=== PATIENT | male | born 1960 | race African-American/Black ===

== ENCOUNTER 2017-01-21 19:00 | Emergency (ER) | payer SELFPAY ==
[2013-06-21 15:00] VITALS: BMI 22.8
[~2017-01-21 19:00] MED LIST: ADVIL200 MG PO; APRESOLINE50 MG PO; ASPIRIN325 MG PO; PLAVIX75 MG PO; PRAVACHOL20 MG PO; TYLENOL325 MG PO; ZESTRIL40 MG PO; [UNRECOGNIZED DRUG - REMARK]; [UNRECOGNIZED DRUG - REMARK]; [UNRECOGNIZED DRUG - REMARK]
[2017-01-21 19:36] LABS: BASOPHILS 0.6 % (0.0-2.0); EOSINOPHILS 15.7 % (0-7); HEMATOCRIT 37.2 % (42.0-54.0); HEMOGLOBIN 12.6 g/dL (13.5-17.5); IMMATURE GRANULOCYTES 0.2 % (0-5); LYMPHOCYTES 43.7 % (15-50); MCH 30.1 pg (26.0-34.0); MCHC 33.9 g/dL (31.0-37.0); MCV 88.8 fL (80.0-100.0); MEAN PLATELET VOLUME 9.9 fL (7.4-10.4); MONOCYTES 6.7 % (2-11); NEUTROPHILS 33.1 % (40-80); PLATELET COUNT 135 10x3/uL (130-400); RBC 4.19 10x6/uL (4.20-6.10); RDW 13.4 % (11.5-14.5)
[2017-01-21 19:48] LABS: APPEARANCE CLEAR (CLEAR); BILIRUBIN NEGATIVE (NEGATIVE); COLOR COLORLESS (YELLOW); GLUCOSE NEGATIVE (NEGATIVE); KETONE NEGATIVE (NEGATIVE); LEUKOCYTE ESTERASE NEGATIVE (NEGATIVE); NITRITE NEGATIVE (NEGATIVE); PROTEIN NEGATIVE (NEGATIVE); UROBILINOGEN NORMAL (NORMAL)
[2017-01-21 19:49] LABS: UDS - AMPHET NEGATIVE QUAL (NEGATIVE); UDS - BARB NEGATIVE QUAL (NEGATIVE); UDS - BENZO NEGATIVE QUAL (NEGATIVE); UDS - COCAINE NEGATIVE QUAL (NEGATIVE); UDS - METH NEGATIVE QUAL (NEGATIVE); UDS - OPIATE NEGATIVE QUAL (NEGATIVE); UDS - PCP NEGATIVE QUAL (NEGATIVE); UDS - THC NEGATIVE QUAL (NEGATIVE)
[2017-01-21 19:58] LABS: ALKALINE PHOSPHATASE 50 U/L (46-116); ALT (SGPT) 55 U/L (10-68); BILIRUBIN - TOTAL 0.35 mg/dL (0.2-1.3); CALC OSMOLALITY 269 mosm/kg (275-300); CALCIUM 8.9 mg/dL (8.5-10.1); CARBON DIOXIDE 22.2 mmol/L (21.0-32.0); CHLORIDE - SERUM 101 mmol/L (98-107); GLUCOSE 81 mg/dL (74-106); POTASSIUM - SERUM 3.5 mmol/L (3.5-5.1); PROTEIN - SERUM 8.5 g/dL (6.4-8.2); SODIUM 136 mmol/L (136-145); UREA NITROGEN 11 mg/dL (7-18); eGFR NON AFRICAN AMERICAN 81 mL/min (90-120)
== END 2017-01-22 11:13 | disposition home or self-care (01) ==
LOC: D.ER 19:00
PROVIDERS: Emergency Medicine
DX: F10.129 Alcohol abuse with intoxication, unspecified (principal); I10 Essential (primary) hypertension

== ENCOUNTER 2017-08-18 09:55 | Emergency (ER) | payer MEDICAID ==
[2013-06-21 15:00] VITALS: BMI 22.8
== END 2017-08-18 13:41 | disposition home or self-care (01) ==
LOC: D.ER 09:55
DX: I10 Essential (primary) hypertension (principal)

== ENCOUNTER 2017-10-16 19:06 | Emergency (ER) | payer MEDICAID ==
[2013-06-21 15:00] VITALS: BMI 22.8
[2017-10-16 19:36] LABS: BASOPHILS 0.6 % (0-2); HEMATOCRIT 38.8 % (42.0-54.0); HEMOGLOBIN 13.3 g/dL (13.5-17.5); LYMPHOCYTES 38.3 % (15-50); MCHC 34.3 g/dL (31.0-37.0); MCV 93.3 fL (80.0-100.0); MONOCYTES 9.3 % (2-11); NEUTROPHILS 38.8 % (40-80); RBC 4.16 10x6/uL (4.20-6.10); RDW 12.3 % (11.5-14.5); WBC 5.4 10x3/uL (4.8-10.8)
[2017-10-16 19:37] LABS: PLATELET COUNT 186 10x3/uL (130-400)
[2017-10-16 19:45] LABS: UDS - AMPHET NEGATIVE QUAL (NEGATIVE); UDS - BARB NEGATIVE QUAL (NEGATIVE); UDS - BENZO NEGATIVE QUAL (NEGATIVE); UDS - COCAINE NEGATIVE QUAL (NEGATIVE); UDS - OPIATE NEGATIVE QUAL (NEGATIVE); UDS - PCP NEGATIVE QUAL (NEGATIVE); UDS - THC NEGATIVE QUAL (NEGATIVE)
[2017-10-16 19:52] LABS: ALBUMIN 3.8 g/dL (3.4-5.0); BILIRUBIN - TOTAL 0.22 mg/dL (0.2-1.3); CALCIUM 8.7 mg/dL (8.5-10.1); CARBON DIOXIDE 23.4 mmol/L (21.0-32.0); CREATININE - SERUM 1.1 mg/dL (0.6-1.3); MAGNESIUM - SERUM 2.1 mg/dL (1.8-2.4); POTASSIUM - SERUM 3.4 mmol/L (3.5-5.1); PROTEIN - SERUM 8.9 g/dL (6.4-8.2)
== END 2017-10-16 20:30 | disposition home or self-care (01) ==
LOC: D.ER 19:06
PROVIDERS: Emergency Medicine
DX: F10.129 Alcohol abuse with intoxication, unspecified (principal)

== ENCOUNTER 2017-12-17 09:46 | Emergency (ER) | payer MEDICAID ==
[2013-06-21 15:00] VITALS: BMI 22.8
== END 2017-12-17 11:28 | disposition home or self-care (01) ==
LOC: D.ER 09:46
DX: I10 Essential (primary) hypertension (principal); F17.200 Nicotine dependence, unspecified, uncomplicated

== ENCOUNTER 2018-03-10 08:49 | Emergency (ER) | payer MEDICAID ==
[2013-06-21 15:00] VITALS: BMI 22.8
== END 2018-03-10 09:35 | disposition home or self-care (01) ==
LOC: D.ER 08:49
DX: I10 Essential (primary) hypertension (principal); F17.200 Nicotine dependence, unspecified, uncomplicated

== ENCOUNTER 2018-05-25 08:59 | Emergency (ER) | payer MEDICAID ==
[~2018-05-25] VITALS: Ht 185.4 cm; Wt 81.8 kg
[2018-05-25 09:20] VITALS: Ht 185.4 cm; Wt 81.8 kg
[2018-05-25 10:00] VITALS: BP 150/105
== END 2018-05-25 10:00 | disposition home or self-care (01) ==
LOC: D.ER 08:59
DX: I10 Essential (primary) hypertension (principal)

== ENCOUNTER 2018-07-13 10:46 | Emergency (ER) | payer MEDICAID ==
[~2018-07-13] VITALS: Ht 185.4 cm; Wt 81.8 kg
[2018-07-13 10:51] VITALS: Ht 185.4 cm; Wt 81.8 kg
[2018-07-13] MEDS ORDERED: TORADOL10 MG PO (13:44)
[2018-07-13 13:52] VITALS: BP 164/96
== END 2018-07-13 13:52 | disposition home or self-care (01) ==
LOC: D.ER 10:46
DX: S62.306A Unspecified fracture of fifth metacarpal bone, right hand, initial encounter for closed fracture (principal); W10.9XXA Fall (on) (from) unspecified stairs and steps, initial encounter; Y93.89 Activity, other specified; Y92.019 Unspecified place in single-family (private) house as the place of occurrence of the external cause; Z86.73 Personal history of transient ischemic attack (TIA), and cerebral infarction without residual deficits

== ENCOUNTER 2018-09-08 07:47 | Emergency (ER) | payer MEDICAID ==
[~2018-09-08] VITALS: Ht 185.4 cm; Wt 80.9 kg
[~2018-09-08 07:47] MED LIST changes: +TORADOL10 MG PO
[2018-09-08 08:06] VITALS: Ht 185.4 cm; Wt 80.9 kg
[2018-09-08] MEDS ORDERED: NORVASC5 MG PO (08:08)
[2018-09-08] MEDS ORDERED: NORVASC10 MG PO (08:45)
[2018-09-08 09:02] VITALS: BP 117/85
== END 2018-09-08 08:56 | disposition home or self-care (01) ==
LOC: D.ER 07:47
DX: I10 Essential (primary) hypertension (principal); F17.200 Nicotine dependence, unspecified, uncomplicated

== ENCOUNTER 2019-07-05 10:51 | Emergency (ER) | payer MEDICAID ==
[~2019-07-05] VITALS: Ht 185.4 cm; Wt 71.9 kg
[~2019-07-05 10:51] MED LIST changes: +NORVASC10 MG PO; +NORVASC5 MG PO
[2019-07-05 11:08] VITALS: Ht 185.4 cm; Wt 71.9 kg
[2019-07-05] MEDS ORDERED: CATAPRES0.1 MG PO ×2 (11:10→12:06)
[2019-07-05] MEDS ORDERED: NORVASC10 MG PO (12:06)
[2019-07-05 12:25] VITALS: BP 134/102
== END 2019-07-05 12:25 | disposition home or self-care (01) ==
LOC: D.ER 10:51
DX: I10 Essential (primary) hypertension (principal)

== ENCOUNTER 2019-09-13 10:44 | Inpatient (IN) | payer MEDICAID ==
[~2019-09-13] VITALS: Ht 185.4 cm; Wt 77.1 kg
[~2019-09-13 10:44] MED LIST changes: +CATAPRES0.1 MG PO
[2019-09-13 12:51] LABS: BASOPHILS 0.3 % (0-2); HEMATOCRIT 38.6 % (42.0-54.0); IMMATURE GRANULOCYTES 0.1 % (0-5); LYMPHOCYTES 13.5 % (15-50); MCH 31.2 pg (26.0-34.0); MCHC 33.7 g/dL (31.0-37.0); MCV 92.6 fL (80.0-100.0); MONOCYTES 12.6 % (2-11); NEUTROPHILS 67.5 % (40-80); RBC 4.17 10x6/uL (4.20-6.10); RDW 13.2 % (11.5-14.5); WBC 7.7 10x3/uL (4.8-10.8)
[2019-09-13 12:53] LABS: PLATELET COUNT 230 10x3/uL (130-400)
[2019-09-13 12:58] LABS: ANION GAP 12.8 mmol/L (8-16); CALCIUM 9.1 mg/dL (8.5-10.1); CARBON DIOXIDE 27.9 mmol/L (21.0-32.0); CREATININE - SERUM 1.1 mg/dL (0.6-1.3); POTASSIUM - SERUM 3.7 mmol/L (3.5-5.1)
[2019-09-13 13:04] LABS: ALBUMIN 3.5 g/dL (3.4-5.0); BILIRUBIN - TOTAL 1.01 mg/dL (0.2-1.3); PROTEIN - SERUM 9.6 g/dL (6.4-8.2)
[2019-09-13 13:44] VITALS: BP 177/111
[2019-09-13 15:30] VITALS: BP 183/110; BMI 22.4
--- NOTE | 2019-09-13 15:43 | NUR ---
PATIENT ADMITTED FROM ER WITH KEKE-RECTAL ABCESS, PATIENT IS ALERT AND ORIENTED, DENIES PAIN AT THIS TIME. PATIENT ORIENTED TO ROOM, SR UP X2, CL IN REACH
--- NOTE | 2019-09-13 15:50 | MORECARE ---
CASE MANAGEMENT DISCHARGE SUMMARY PATIENT: JENN JARVIS UNIT: [id number] ADM DATE: 09/13/19 AGE: 59 : 58 SEX: M ROOM/BED: D.2227 AUTHOR: LEONEL,DOC PHYSICIAN: REFERRING PHYSICIAN: KRISTINE HART MD DATE OF SERVICE: 09/13/19 Discharge Plan Patient Name: JENN JARVIS Facility: [facility]:[place] : 1960 Planned Disposition: Home Anticipated Discharge Date: 09/15/19 Discharge Date: Expected LOS: 2 Initial Reviewer: [email or web address] Initial Review Date: 09/13/2019 Generated: 09/13/19 4:49 pm DCP- Discharge Planning Updated by [email or web address]: Monique Romano on 09/13/19 2:[address] DC PLAN: Return home with roommates. ANTICIPATED DC NEEDS: Denied known dc needs at time of assessment. CM met with patient to complete initial dc planning assessment. CM educated patient on the CM role and verbal consent given by patient to complete assessment. CM verified patient's address, phone number, and emergency contact phone numbers. Patient lives at home with roommates one being his sister. At discharge patient plans to return home and feels this is a safe discharge. CM discussed availability of home health, rehab services, and medical equipment. Patient denied known discharge needs at this time. Transportation provider at discharge will be the bus or his sister . CM will continue to follow and will assist as needed with dc plans/needs. Monique Romano RN, [facility] DCPIA - Discharge Planning Initial Assessment Updated by [email or web address]: Monique Romano on 09/13/19 3:39 pm * Is the patient Alert and Oriented? Yes * How many steps to enter\exit or inside your home? * PCP No PCP * Pharmacy [facility] [address] * Preadmission Environment Home with Family * ADLs Independent * Equipment None * List name and contact numbers for known caregivers / representatives who currently or will assist patient after discharge: Analy Kim - sister - doesn't know phone number. * Verbal permission to speak to the caregivers and representatives has been obtained from the patient. Yes * Community resources currently utilized None * Additional services required to return to the preadmission environment? No * Can the patient safely return to the preadmission environment? Yes * Has this patient been hospitalized within the prior 30 days at any hospital? No Patient Name: JENN JARVIS Page [id number] at 1550 All edits/amendments must be made on the electronic document DICTATION DATE: 09/13/191548 CLINICAL ALLERGIST: CLIFTON 09/13/191548 RPT#: [id number] DC DATE: STATUS: ADM IN [facility] [address] [place] [address] END OF REPORT
--- NOTE | 2019-09-13 19:21 | NUR ---
PATIIENT RESTING IN BED WITH GUEST AT BEDSIDE AND NO S/S OF DISTRESS. EXPLAINED TO THE PATIENT THAT HE CAN'T HAVE ANYTHING TO EAT OR DRINK AFTER MIDNIGHT. PATIENT ASKED IF HE COULD HAVE WATER AFTER MIDNIGHT. I EXPLAINED TO THE PATIENT THAT HE CAN'T HAVE ANYTHING TO EAT OR DRINK INCLUDING WATER. I ALSO WROTE IT ON THE PATIENT'S BOARD TO REMIND HIM. EXPLAINED TO THE PATIENT THAT WE WOULD REMOVE ALL CUPS AND FOOD FROM THE PATIENT'S TRAY AT MIDNIGHT. PATIENT VERBALIZED UNDERSTANDING. BED IN LOWEST POSITION AND CALL LIGHT WITHIN REACH. ENCOURAGED THE PATIENT TO CALL IF HE HAS NEEDS. WILL CONTINUE TO MONITOR.
[2019-09-13 20:00] VITALS: BP 154/91
[2019-09-14] VITALS: BP 169/108
[2019-09-14 04:00] VITALS: BP 183/105
[2019-09-14 06:52] LABS: BASOPHILS 0.5 % (0-2); HEMATOCRIT 32.5 % (42.0-54.0); HEMOGLOBIN 10.7 g/dL (13.5-17.5); IMMATURE GRANULOCYTES 0.2 % (0-5); MCH 30.5 pg (26.0-34.0); MCHC 32.9 g/dL (31.0-37.0); MCV 92.6 fL (80.0-100.0); MEAN PLATELET VOLUME 10.4 fL (7.4-10.4); MONOCYTES 12.9 % (2-11); NEUTROPHILS 50.4 % (40-80); PLATELET COUNT 206 10x3/uL (130-400); RBC 3.51 10x6/uL (4.20-6.10); RDW 13.2 % (11.5-14.5)
[2019-09-14 06:57] LABS: APTT 36.3 SECONDS (22.8-39.4); INR 1.21 (0.85-1.17); PROTIME 14.8 SECONDS (11.6-15.0)
--- NOTE | 2019-09-14 07:05 | NUR ---
ALERT AND ORIENTED, RESTING IN BED. FAMILY AT BEDSIDE. NO C/O PAIN. NO S/S OF ACUTE DISTRESS NOTED. SCHEDULED FOR I&D TODAY. CONSENTS SIGNED. IV TO RIGHT FOREARM, D5LR WITH 10K+ INFUSING @ 50ML/HR. SITE PATENT WITHOUT REDNESS OR SWELLING. DENIES ANY NEEDS AT THIS TIME. CALL LIGHT IN REACH. WILL CONTINUE TO MONITOR.
[2019-09-14 07:07] LABS: CALC OSMOLALITY 272 mosm/kg (275-300); CALCIUM 8.8 mg/dL (8.5-10.1); CARBON DIOXIDE 26.8 mmol/L (21.0-32.0); CHLORIDE - SERUM 104 mmol/L (98-107); GLUCOSE 80 mg/dL (74-106); MAGNESIUM - SERUM 1.8 mg/dL (1.8-2.4); PHOSPHOROUS 3.9 mg/dL (2.5-4.9); POTASSIUM - SERUM 3.6 mmol/L (3.5-5.1); SODIUM 137 mmol/L (136-145); UREA NITROGEN 12 mg/dL (7-18); eGFR NON AFRICAN AMERICAN 81 mL/min (90-120)
[2019-09-14 07:24] LABS: WBC 4.3 10x3/uL (4.8-10.8)
--- NOTE | 2019-09-14 08:06 | NUR ---
PRE-OPED PATIENT, SURGERY STAFF TAKING PATIENT TO SURGERY.
[2019-09-14 09:49] VITALS: BP 168/101
--- NOTE | 2019-09-14 11:45 | MORECARE ---
CASE MANAGEMENT DISCHARGE SUMMARY PATIENT: JENN JARVIS UNIT: [id number] ADM DATE: 09/13/19 AGE: 59 : 58 SEX: M ROOM/BED: D.2227 AUTHOR: LEONEL,DOC PHYSICIAN: REFERRING PHYSICIAN: KRISTINE HART MD DATE OF SERVICE: 09/14/19 Discharge Plan Patient Name: JENN JARVIS Facility: [facility]:[place] : 1960 Planned Disposition: Home Anticipated Discharge Date: 09/15/19 Discharge Date: Expected LOS: 2 Initial Reviewer: [email or web address] Initial Review Date: 09/13/2019 Generated: 09/14/19 12:45 pm Comments DCP- Discharge Planning Updated by [email or web address]: Shira Jerez on 09/14/19 10:[address] CM met with patient to discuss discharge planning. He states he does not have a PCP. He states he uses a walk in clinic and has seen Michelle Del Rio APN and he sees Kristine Rivera in ED. He states that he has room mates that can do his wound care. He declines home health. CM will continue to follow and assist with discharge planning/needs. DCP- Discharge Planning Updated by [email or web address]: Monique Romano on 09/13/19 2:[address] DC PLAN: Return home with roommates. ANTICIPATED DC NEEDS: Denied known dc needs at time of assessment. CM met with patient to complete initial dc planning assessment. CM educated patient on the CM role and verbal consent given by patient to complete assessment. CM verified patient's address, phone number, and emergency contact phone numbers. Patient lives at home with roommates one being his sister. At discharge patient plans to return home and feels this is a safe discharge. CM discussed availability of home health, rehab services, and medical equipment. Patient denied known discharge needs at this time. Transportation provider at discharge will be the bus or his sister . CM will continue to follow and will assist as needed with dc plans/needs. Monique Romano RN, [facility] DCPIA - Discharge Planning Initial Assessment Updated by [email or web address]: Monique Romano on 09/13/19 3:39 pm * Is the patient Alert and Oriented? Yes * How many steps to enter\exit or inside your home? * PCP No PCP * Pharmacy [facility] on [address] * Preadmission Environment Home with Family * ADLs Independent * Equipment None * List name and contact numbers for known caregivers / representatives who currently or will assist patient after discharge: Analy Kim - sister - doesn't know phone number. * Verbal permission to speak to the caregivers and representatives has been obtained from the patient. Yes * Community resources currently utilized None * Additional services required to return to the preadmission environment? No * Can the patient safely return to the preadmission environment? Yes * Has this patient been hospitalized within the prior 30 days at any hospital? No Last DP export: 09/13/19 2:50 Patient Name: JENN JARVIS Page [phone] at 1145 All edits/amendments must be made on the electronic document DICTATION DATE: 09/14/19 114 MEDIA SERVICES COORDINATOR: CLIFTON 09/14/19 1145 RPT#: [id number] DC DATE: STATUS: ADM IN [facility] [address] [place] [address] END OF REPORT
--- NOTE | 2019-09-14 13:11 | OP ---
PATIENT NAME: JENN JARVIS MEDICAL RECORD: [id number] :58 LOCATION:D.MS Beard2227 ADMISSION DATE:09/13/19 SURGEON: KRISTINE HART MD DATE OF OPERATION: 09/14/2019 SURGEON: Kristine Hart MD PREOPERATIVE DIAGNOSIS: Perirectal abscess. POSTOPERATIVE DIAGNOSIS: Perirectal abscess. PROCEDURE: Incision and drainage of right-sided perirectal abscess. ANESTHESIA: General. COMPLICATIONS: None. SPECIMENS: Anaerobic and aerobic cultures. Case was grossly contaminated. ESTIMATED BLOOD LOSS: 30 cc. OPERATIVE COURSE: After consent was obtained, the patient was taken to the operating room and placed in the supine position on the operating table. Next, general anesthesia was given. A timeout was taken to confirm the correct patient and procedure. The patient was then placed into the lithotomy position. The perineum was prepped and draped in typical sterile fashion. A 20 cc local anesthetic were injected for a perineal block. The area of fluctuance to the right of the rectum was identified. A cruciate incision was made with a 15-blade scalpel. Approximately 20 cc of purulent material fluid were expressed from the wound. Anaerobic and aerobic cultures were obtained and sent for culture and sensitivity. Blunt finger dissection was performed to break up all loculations within the abscess cavity and the abscess cavity was copiously irrigated and suctioned. The abscess cavity was then packed with Iodoform gauze. At the end of the case, all needle and instrument counts were correct. No complications occurred. The patient was extubated and transferred to the PACU in stable condition. TRANSINT:[id number] Voice Confirmation ID: [id number] DOCUMENT ID: [id number] KRISTINE HART MD at 1311 CC: [id number] DICTATION DATE: 09/14/19 0912 AUTOMATIC STACKER: 09/14/19 1139 [place] [address]
[2019-09-14 14:10] VITALS: BMI 22.4
[2019-09-14 15:18] LABS: % SATURATION 17 % (15-55); IRON 34 ug/dl (35-150); TOTAL IRON BIND CAPACITY 200 ug/dl (260-445); UNSAT IRON BIND CAPACITY 166 ug/dl (150-375)
[2019-09-14 16:02] VITALS: BP 150/105
[2019-09-14 16:20] VITALS: Ht 185.4 cm; Wt 77.1 kg
--- NOTE | 2019-09-14 18:20 | NUR ---
I have reviewed this patient and I concur with the Shift Assessment completed by the Licensed Practical Nurse today this shift.
--- NOTE | 2019-09-14 18:32 | NUR ---
ALERT AND ORIENTED, RESTING IN BED. NO C/O PAIN. NO S/S OF ACUTE DISTRESS NOTED. CALL LIGHT IN REACH. DENIES ANY NEEDS AT THIS TIME.
--- NOTE | 2019-09-14 20:00 | NUR ---
A/O WITH NO SIGNS OF ACUTE DISTRESS. IV TO THE RT FOREARM WITH NO REDNESS OR SWELLING NOTED. DRESSING NOTED TO THE COCCYX,CDI. REFUSED NIGHT VITALS. DENIES NO OTHER NEEDS AT THIS TIME. CONTINUE PLAN OF CARE.
[2019-09-14 20:46] VITALS: BP 158/102
[2019-09-15 05:43] VITALS: BP 197/107
[2019-09-15 05:54] LABS: BASOPHILS 0.3 % (0-2); EOSINOPHILS 6.9 % (0-7); HEMATOCRIT 33.7 % (42.0-54.0); HEMOGLOBIN 10.9 g/dL (13.5-17.5); IMMATURE GRANULOCYTES 0.2 % (0-5); MCH 30.2 pg (26.0-34.0); MCHC 32.3 g/dL (31.0-37.0); MCV 93.4 fL (80.0-100.0); MEAN PLATELET VOLUME 10.4 fL (7.4-10.4); MONOCYTES 8.8 % (2-11); NEUTROPHILS 66.8 % (40-80); PLATELET COUNT 189 10x3/uL (130-400); RBC 3.61 10x6/uL (4.20-6.10)
[2019-09-15 05:56] LABS: WBC 6.3 10x3/uL (4.8-10.8)
[2019-09-15 06:26] LABS: CALC OSMOLALITY 279 mosm/kg (275-300); CALCIUM 8.5 mg/dL (8.5-10.1); CARBON DIOXIDE 28.3 mmol/L (21.0-32.0); CHLORIDE - SERUM 107 mmol/L (98-107); GLUCOSE 103 mg/dL (74-106); MAGNESIUM - SERUM 1.6 mg/dL (1.8-2.4); PHOSPHOROUS 3.4 mg/dL (2.5-4.9); POTASSIUM - SERUM 3.8 mmol/L (3.5-5.1); SODIUM 141 mmol/L (136-145); UREA NITROGEN 9 mg/dL (7-18); eGFR NON AFRICAN AMERICAN 81 mL/min (90-120)
--- NOTE | 2019-09-15 06:56 | NUR ---
WALKED INTO ROOM TO GIVE MORNING MEDS AND FOUND PACKING LAYING OUT IN BED. CHANGED DRESSING. SITE HAS NO REDNESS OR SWELLING NOTED. CONTINUE PLAN OF CARE.
[2019-09-15 08:24] VITALS: BP 176/86
--- NOTE | 2019-09-15 09:20 | NUR ---
PT ALERT X 4. BREATH SOUNDS CLEAR BILAT. IV TO RIGHT FOREARM PATENT, DRESSING CDI. DRESSING TO PERIRECTAL AREA CDI. PT REPORTING PAIN OF 8/10, MEDICATED PER ORDERS, WILL MONITOR. BED LOW, CALL LIGHT IN REACH. NO OTHER NEEDS AT THIS TIME.
--- NOTE | 2019-09-15 09:45 | CN ---
PATIENT NAME:JENN LEVINE MEDICAL RECORD: [id number] : 58 LOCATION:D.MS Beard2227 ADMIT DATE: 09/13/19 ACCOUNT: [id number] CONSULTING PHYSICIAN: CESAR ISLAS MD REFERRING PHYSICIAN: KRISTINE HART MD DATE OF CONSULTATION: 09/14/2019 DIAGNOSES: 1. Abnormal ECG. 2. Smoker. 3. Hypertension. HISTORY OF PRESENT ILLNESS: Mr. Levine came in for a perirectal abscess drained. His EKG is compatible with inferolateral ischemia. His EKG as well shows left ventricular hypertrophy. He denies any cardiac pain. No chest pain, no shortness of breath, no cardiac symptomatology. He thinks the EKGs were done wrong. He does not believe he has any cardiac disease at all and wants no cardiac workup. He did have an echocardiogram that showed LVH, but a normal LV function. PHYSICAL EXAMINATION: GENERAL APPEARANCE: Well nourished, well developed, appears stated age. Level of distress, comfortable. PSYCHIATRIC: Mental status, alert, normal affect. Orientation, oriented to time, place and person. EYES: Lids and conjunctiva, noninjected. No discharge, no pallor. ENT: Lips, teeth, gums, normal dentition. Oropharynx, no cyanosis, no pallor. NECK: Carotid arteries, bilateral normal upstroke, no bruits, no thrills. JUGULAR VEINS: No jugular venous pressure or distention. CERVICAL LYMPH NODES: Nontender, nonenlarged. THYROID: Not enlarged. Nontender. No nodules. LUNGS: Respiratory effort, unlabored. CHEST: Normal curvature. No thoracic deformity. No chest wall tenderness. Percussion, resonant. Auscultation, clear. No wheezes, no rales, no rhonchi. CARDIOVASCULAR: Precordial exam, nondisplaced. No heaves or pericardial thrills. Rate and rhythm, regular. Heart sounds, normal S1, normal S2. No S3, no gallop, no rub. Systolic murmur, not heard. Diastolic murmur, not heard. EXTREMITIES: No cyanosis, no edema. Peripheral pulses, full and equal in all extremities, except as noted. No bruits appreciated. ABDOMEN: Soft, nondistended. Normal aorta. No bruit. Nontender. No masses. Liver, nontender, no hepatomegaly. Spleen, nontender, no splenomegaly. MUSCULOSKELETAL: No joint tenderness. No joint swelling. No erythema. NEUROLOGICAL: Normal gait, normal strength, normal tone. SKIN: Warm and dry. OVERALL IMPRESSION: Abnormal ECG, but absolutely no symptomatology at this time. Continue his blood pressure medication to control his blood pressure, cardiac workup only if symptomatology develops in the future. TRANSINT:[id number] Voice Confirmation ID: [id number] DOCUMENT ID: [id number] CONSULT REPORT [id number] JENN LEVINE, CESAR SEPULVEDA at 0945 CC: [id number] DICTATION DATE: 09/14/19 1621 SPICE GRINDER: 09/14/199 ADM IN [facility] [address] [place] [address]
[2019-09-15 12:21] VITALS: BP 147/86
[2019-09-15] MEDS ORDERED: LEVOFLOXACIN500 MG PO (13:20)
[2019-09-15] MEDS ORDERED: HYDROCODON-ACE1 EAC7 PO (13:21)
[2019-09-15] MEDS ORDERED: FLORAJEN3 CAPS460 MG PO (14:06)
[2019-09-15] MEDS ORDERED: LISINOPRIL10 MG PO (14:06)
[2019-09-15] MEDS ORDERED: NORVASC10 MG PO (14:06)
[2019-09-15] MEDS ORDERED: ASPIRIN325 MG PO (14:06)
--- NOTE | 2019-09-15 14:12 | MORECARE ---
CASE MANAGEMENT DISCHARGE SUMMARY PATIENT: JENN JARVIS UNIT: [id number] ADM DATE: 09/13/19 AGE: 59 : 58 SEX: M ROOM/BED: D.2227 AUTHOR: LEONEL,DOC PHYSICIAN: REFERRING PHYSICIAN: KRISTINE HART MD DATE OF SERVICE: 09/15/19 Discharge Plan Patient Name: JENN JARVIS Facility: [facility]:[place] : 1960 Planned Disposition: Home Anticipated Discharge Date: 09/15/19 Discharge Date: Expected LOS: 2 Initial Reviewer: [email or web address] Initial Review Date: 09/13/2019 Generated: 09/15/19 3:12 pm Comments DCP- Discharge Planning Updated by [id number]: Shira Jerez on 09/15/19 1:[address] Patient does not have a PCP, he sees the ER doctor or goes to walk in clinic. I gave him the [facility] to sign up for a PCP as well as [facility]. He states his sister is going to be here at 4 oclock today to learn to pack his wound daily. He states she has already agreed to doing it and she will also take him home. Home today. Sister's phone number is [phone]. DCP- Discharge Planning Updated by [id number]: Shira Jerez on 09/14/19 10:[address] CM met with patient to discuss discharge planning. He states he does not have a PCP. He states he uses a walk in clinic and has seen Michelle Del Rio APN and he sees Kristine Rivera in ED. He states that he has room mates that can do his wound care. He declines home health. CM will continue to follow and assist with discharge planning/needs. DCP- Discharge Planning Updated by [email or web address]: Monique Romano on 09/13/19 2:[address] DC PLAN: Return home with roommates. ANTICIPATED DC NEEDS: Denied known dc needs at time of assessment. CM met with patient to complete initial dc planning assessment. CM educated patient on the CM role and verbal consent given by patient to complete assessment. CM verified patient's address, phone number, and emergency contact phone numbers. Patient lives at home with roommates one being his sister. At discharge patient plans to return home and feels this is a safe discharge. CM discussed availability of home health, rehab services, and medical equipment. Patient denied known discharge needs at this time. Transportation provider at discharge will be the bus or his sister . CM will continue to follow and will assist as needed with dc plans/needs. Monique Romano RN, [facility] DCPIA - Discharge Planning Initial Assessment Updated by [email or web address]: Monique Romano on 09/13/19 3:39 pm * Is the patient Alert and Oriented? Yes * How many steps to enter\exit or inside your home? * PCP No PCP * Pharmacy [facility] on [address] [address] * Preadmission Environment Home with Family * ADLs Independent * Equipment None * List name and contact numbers for known caregivers / representatives who currently or will assist patient after discharge: Analy Kim - sister - doesn't know phone number. * Verbal permission to speak to the caregivers and representatives has been obtained from the patient. Yes * Community resources currently utilized None * Additional services required to return to the preadmission environment? No * Can the patient safely return to the preadmission environment? Yes * Has this patient been hospitalized within the prior 30 days at any hospital? No Last DP export: 09/14/19 10:45 Patient Name: JENN JARVIS Page [phone] at 1412 All edits/amendments must be made on the electronic document DICTATION DATE: 09/15/191411 DIRECTOR ENTERPRISE SALES: CLIFTON 09/15/191411 RPT#: [id number] DC DATE: STATUS: ADM IN [facility] [address] [place] [address] END OF REPORT
[2019-09-15] MEDS ORDERED: COLACE100 MG PO (15:25)
[2019-09-15 17:08] LABS: SPE - A/G RATIO 0.7 (0.7-1.7); SPE - ALBUMIN 2.9 g/dL (2.9-4.4); SPE - ALPHA-1 GLOBULIN 0.2 g/dL (0.0-0.4); SPE - ALPHA-2 GLOBULIN 0.8 g/dL (0.4-1.0); SPE - GAMMA GLOBULIN 2.2 g/dL (0.4-1.8); SPE - M-SPIKE Not Observed g/dL (Not Observed); SPE - TOTAL PROTEIN 7.1 g/dL (6.0-8.5)
--- NOTE | 2019-09-15 17:25 | NUR ---
DISCHARGE PAPERWORK SIGNED, ALL QUESTIONS ANSWERED. DRESSING TO BUTTOCK COMPLETED, FAMILY INSTRUCTION GIVEN. IV TO RIGHT FOREARM DC'D, TIP INTACT. ESCORTED OUT VIA WHEELCHAIR.
--- NOTE | 2019-09-17 15:59 | MORECARE ---
CASE MANAGEMENT DISCHARGE SUMMARY PATIENT: JENN JARVIS UNIT: [id number] ADM DATE: 09/13/19 AGE: 59 : 58 SEX: M ROOM/BED: D.2227 AUTHOR: LEONEL,DOC PHYSICIAN: REFERRING PHYSICIAN: KRISTINE HART MD DATE OF SERVICE: 09/17/19 Discharge Plan Patient Name: JENN JARVIS Facility: [facility]:[place] : 1960 Planned Disposition: Home Anticipated Discharge Date: 09/15/19 Discharge Date: 09/15/2019 Expected LOS: 2 Initial Reviewer: [id number] Initial Review Date: 09/13/2019 Generated: 09/17/19 4:59 pm Comments DCP- Discharge Planning Updated by [email or web address]: Shira Jerez on 09/15/19 1:[address] Patient does not have a PCP, he sees the ER doctor or goes to walk in clinic. I gave him the [facility] number to sign up for a PCP as well as [facility]. He states his sister is going to be here at 4 oclock today to learn to pack his wound daily. He states she has already agreed to doing it and she will also take him home. Home today. Sister's phone number is [phone]. DCP- Discharge Planning Updated by [email or web address]: Shira Jerez on 09/14/19 10:[address] CM met with patient to discuss discharge planning. He states he does not have a PCP. He states he uses a walk in clinic and has seen Michelle Del Rio APN and he sees Kristine Rivera in ED. He states that he has room mates that can do his wound care. He declines home health. CM will continue to follow and assist with discharge planning/needs. DCP- Discharge Planning Updated by [email or web address]: Monique Romano on 09/13/19 2:[address] DC PLAN: Return home with roommates. ANTICIPATED DC NEEDS: Denied known dc needs at time of assessment. CM met with patient to complete initial dc planning assessment. CM educated patient on the CM role and verbal consent given by patient to complete assessment. CM verified patient's address, phone number, and emergency contact phone numbers. Patient lives at home with roommates one being his sister. At discharge patient plans to return home and feels this is a safe discharge. CM discussed availability of home health, rehab services, and medical equipment. Patient denied known discharge needs at this time. Transportation provider at discharge will be the bus or his sister . CM will continue to follow and will assist as needed with dc plans/needs. Monique Romano RN, [facility] DCPIA - Discharge Planning Initial Assessment Updated by [email or web address]: Monique Romano on 09/13/19 3:39 pm * Is the patient Alert and Oriented? Yes * How many steps to enter\exit or inside your home? * PCP No PCP * Pharmacy [facility] on [address] * Preadmission Environment Home with Family * ADLs Independent * Equipment None * List name and contact numbers for known caregivers / representatives who currently or will assist patient after discharge: Analy Kim - sister - doesn't know phone number. * Verbal permission to speak to the caregivers and representatives has been obtained from the patient. Yes * Community resources currently utilized None * Additional services required to return to the preadmission environment? No * Can the patient safely return to the preadmission environment? Yes * Has this patient been hospitalized within the prior 30 days at any hospital? No Last DP export: 09/15/19 1:12 Patient Name: JENN JARVIS Page [phone] at 1559 All edits/amendments must be made on the electronic document DICTATION DATE: 09/17/191558 EVENT SPECIALIST: CLIFTON 09/17/191558 RPT#: [id number] DC DATE:09/15/19 STATUS: DIS IN [facility] [address] [place] [address] END OF REPORT
--- NOTE | 2019-09-22 14:07 | EC ---
PATIENT:JENN JARVIS DATE OF SERVICE: 09/13/19 SEX: M MEDICAL RECORD: [id number] DATE OF : 58 LOCATION:D.MS Beard222 AGE OF PATIENT: 59 ADMISSION DATE: 09/13/19 REFERRING PHYSICIAN: INTERPRETING PHYSICIAN: CESAR MATHIS MD ECHOCARDIOGRAM REPORT ECHO CHARGES 4 ECHO COMPLETE Date: 09/14/19 CLINICAL DIAGNOSIS: CHEST PAIN ECHOCARDIOGRAPHIC MEASUREMENTS (adult normal given) AC root (d.<3.7cm) 3.8 cm LV Septum d (<1.2 cm> 1.2 cm Valve Excursion 1.6 cm LV Septum (systole) 1.9 cm Left Atria (s.<4.0cm> 3.9 cm LVPW d(<1.2cm) 1.5 cm RV (d.<2.3cm) 4.2 cm LVPW (sytole) 2.2 cm LV diastole(<5.6CM) 5.6 cm MV E-F(>70mm/sec) cm LV systole 3.3 cm LVOT Diameter 2.1 cm MV exc.(>10mm) cm Est.ejection fraction (50-75%) % DOPPLER: LVIT cm/sec A 77.0 cm/sec E 60.0 cm/sec LA cm/sec RVSP 20 mmHg LVOT 92 cm/sec AOP1/2T m/s Asc. 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 Mathis TAPE# PACS Pericardial Effusion N DATE OF SERVICE: FINDINGS: 1. Left ventricular chamber size is mildly dilated. 2. Left ventricular systolic function is preserved at 60% to 65%. 3. Left atrium is dilated at 4.2 cm. Right atrium and right ventricular chamber sizes are within normal limits. 4. Valvular structures have normal structure and motion. 5. Doppler interrogation only reveals mild aortic insufficiency. No other valvular insufficiency or stenosis. Pulmonary systolic pressure is estimated at ECHOCARDIOGRAM REPORT [id number] JENN JARVIS 20 mmHg. 6. No evidence of pericardial effusion or left ventricular thrombus. TRANSINT:[id number] Voice Confirmation ID: [id number] DOCUMENT ID: [id number] CESAR MATHIS MD at 1407 CC: [id number] DICTATION DATE: 09/15/191107 DESIZING MACHINE BACK TENDER: 09/15/19 1133 DIS IN 09/15/19 [place] [id number] [place] [id number]
== END 2019-09-15 17:26 | disposition home or self-care (01) | DRG 580 ==
LOC: D.ER 10:44 → D.MS 14:34
PROVIDERS: Family Medicine; ADMIT Surgery; ATTEND Surgery
PROC: 0J990ZZ Drainage of Buttock Subcutaneous Tissue and Fascia, Open Approach (ICD-10-PCS; principal; 2019-09-14 11:00)
DX: L02.31 Cutaneous abscess of buttock (principal); F17.203 Nicotine dependence unspecified, with withdrawal; I10 Essential (primary) hypertension; Z72.89 Other problems related to lifestyle; R94.31 Abnormal electrocardiogram [ECG] [EKG]